=== PATIENT | male | born 1980 | race Caucasian/White ===

== ENCOUNTER 2019-06-06 12:07 | Emergency (ER) | payer SELFPAY ==
[~2019-06-06] VITALS: Ht 177.8 cm; Wt 99.8 kg
[2019-06-06 12:22] VITALS: BP 124/91
[2019-06-06] MEDS ORDERED: SODIUM CHLORIDE 0.9% 1,000 ML IVB ONE (12:26)
[2019-06-06 12:52] LABS: Basophils # (auto) 0.1 uL; Basophils % (auto) 0.6 % (0.0-2.0); Eosinophils # (auto) 0 uL; Eosinophils % (auto) 0.5 % (0.0-7.0); Hematocrit 39.9 % (41.0-53.0); Hemoglobin 13.3 g/dL (13.5-17.5); Lymphocytes # (auto) 1.4 uL; Lymphocytes % (auto) 14.8 % (10.0-50.0); Mean Corpuscular Hemoglobin 27.9 pg (28.0-32.0); Mean Corpuscular Hgb Conc. 33.3 g/dL (32.0-36.0); Mean Corpuscular Volume 83.8 fL (80.0-100.0); Monocytes # (auto) 0.8 uL; Monocytes % (auto) 8.5 % (0.0-12.0); Neutrophils # (auto) 6.9 uL; Neutrophils % (auto) 75.6 % (37.0-80.0); Platelet Count (auto) 402 10^3/uL (140-450); Red Blood Cells 4.75 10^6/uL (4.5-5.90); Red Cell Distribution Width 16.4 % (11.8-14.3); White Blood Cell 9.2 10^3/uL (4.4-10.8)
[2019-06-06 13:16] LABS: Albumin 3.5 g/dL (3.4-5.0); Anion Gap 6 (5-15); BUN/Creatinine Ratio 16.3; Blood Alcohol < 3.0 mg/dL (0-5); Blood Urea Nitrogen 17 mg/dL (7-18); Calcium 8.4 mg/dL (8.5-10.1); Carbon Dioxide 24 mmol/L (21-32); Chloride 110 mmol/L (98-107); GFR African American 103 mL/min; GFR Non-African American 85 mL/min; Glucose 136 mg/dL (74-106); Magnesium 2.2 mg/dL (1.6-2.6); Potassium 3.4 mmol/L (3.5-5.1); Sodium 140 mmol/L (136-145)
[2019-06-06 13:22] LABS: Alanine Aminotransferase 18 U/L (16-61); Alkaline Phosphatase 65 U/L (45-117); Aspartate Aminotransferase 10 U/L (15-37); Bilirubin, Total 0.4 mg/dL (0.2-1.0); Total Protein 7.3 g/dL (6.4-8.2)
[2019-06-06 14:36] LABS: Alcohol, Urine < 3.0 mg/dL (0-5); Amphetamine Screen, Urine NEGATIVE (NEGATIVE); Barbiturate Scree,Urine NEGATIVE (NEGATIVE); Benzodiazephine Screen, Urine NEGATIVE (NEGATIVE); Cannabinoid Screen, Urine POSITIVE (NEGATIVE); Cocaine Screen, Urine NEGATIVE (NEGATIVE); Opiate Scree,Urine NEGATIVE (NEGATIVE); Phencyclidine Screen, Urine NEGATIVE (NEGATIVE)
== END 2019-06-06 15:44 | disposition home or self-care (01) ==
LOC: EDBD 12:07 → ER 12:15 → EDBD 12:15 → ER 15:44
DX: F12.90 Cannabis use, unspecified, uncomplicated (principal); R55 Syncope and collapse
CPT/HCPCS: 36415; 70450; 80053; 80307; 80320; 83735; 84484; 85025; 93005; 94761; 99284; J7030